=== PATIENT | male | born 1935 | race Caucasian/White ===

== ENCOUNTER 2017-08-12 15:41 | Emergency (ER) | payer MEDICARE ==
[2017-08-12 16:30] LABS: #Basophils 0.1 thou/uL (0.0-0.2); #Eosinphils 0.2 thou/uL (0.0-0.7); #Lymphocytes 1.9 thou/uL (1.20-3.40); #Monocytes 0.7 thou/uL (0.11-0.59); #Neutrophils 5.2 thou/uL (1.40-6.50); %Eosinophils 1.9 % (0.0-10.0); %Lymphocytes 23.2 % (21.0-51.0); %Monocytes 9.2 % (0.0-10.0); %Neutrophils 64.8 % (42.0-75.0); Hemoglobin 16.3 g/dL (14.0-18.0); Mean Corpuscular HGB CONC 31.5 g/dL (32.0-36.0); Mean Corpuscular Hemoglobin 30.3 pg (27.0-31.0); Mean Corpuscular Volume 96.1 fl (80.0-94.0); Mean Platelet Volume 6.8 fL (7.4-10.4); Platelet Count 219 thou/uL (130-400); Red Blood Cell (RBC) Count 5.38 mill/uL (4.70-6.10)
--- NOTE | 2017-08-12 16:36 | RAD ---
PORTABLE AP CHEST X-RAY 08/12/17 HISTORY: Chest pain. COMPARISON: 05/30/16. 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 The cardiac silhouette is magnified by projection bu t stable in size. Pulmonary vasculature is within normal limits. The findings are clear. There is mi ld elevation of the left hemidiaphragm. Median sternotomy wires are seen. Vascular calcifications se en in the thoracic aorta. There is osteopenia. IMPRESSION: Stable chest without evidence of an acute cardiopulmonary process. POS: [facility]
[2017-08-12 16:44] LABS: ALT (SGPT) 22 U/L (8-55); AST (SGOT) 24 U/L (5-34); Albumin 4.1 g/dL (3.4-4.8); Alkaline Phosphatase 78 U/L (40-150); Anion Gap 15 mmol/L (10-20); BUN (Urea Nitrogen) 19 mg/dL (8.4-25.7); Bilirubin, Total 0.7 mg/dL (0.2-1.2); CK (CPK) 167 U/L (30-200); Calc. Creatinine Clearance 0 mL/min (70-130); Calcium 9.6 mg/dL (7.8-10.44); Carbon Dioxide 27 mmol/L (23-31); Chloride 105 mmol/L (98-107); Estimated GFR-MDRD 81; Globulin 2.7 g/dL (2.4-3.5); Glucose 139 mg/dL (83-110); Potassium 3.8 mmol/L (3.5-5.1); Protein, Total 6.8 g/dL (5.8-8.1); Sodium 143 mmol/L (136-145)
[2017-08-12 16:51] LABS: CKMB 5.1 ng/mL (0-6.6); Troponin I 0.017 ng/mL (< 0.028)
== END 2017-08-12 17:32 | disposition short-term general hospital (02) ==
LOC: NAV ERS 15:41
DX: R07.2 Precordial pain (principal); I25.2 Old myocardial infarction; E78.5 Hyperlipidemia, unspecified; I25.810 Atherosclerosis of coronary artery bypass graft(s) without angina pectoris; Z87.891 Personal history of nicotine dependence; Z79.82 Long term (current) use of aspirin
CPT/HCPCS: 36415; 71010; 80053; 82553; 84484; 85025; 93005

== ENCOUNTER 2019-12-27 10:40 | Emergency (ER) | payer MEDICARE, OTHER ==
[2019-12-27] MEDS ORDERED: Sodium Chloride 0.9% 1,000 ML ONE (12:08)
[2019-12-27 12:31] LABS: #Basophils 0.1 thou/uL (0.0-0.2); #Eosinphils 0.1 thou/uL (0.0-0.7); #Lymphocytes 1.5 thou/uL (1.20-3.40); #Monocytes 0.9 thou/uL (0.11-0.59); #Neutrophils 5.3 thou/uL (1.40-6.50); %Eosinophils 1.7 % (0.0-10.0); %Lymphocytes 19.1 % (21.0-51.0); %Monocytes 10.8 % (0.0-10.0); %Neutrophils 67.4 % (42.0-75.0); Hemoglobin 15.5 g/dL (14.0-18.0); Mean Corpuscular HGB CONC 31.6 g/dL (32.0-36.0); Mean Corpuscular Hemoglobin 28.8 pg (27.0-31.0); Mean Corpuscular Volume 91.2 fL (78.0-98.0); Mean Platelet Volume 6.6 fL (7.4-10.4); Platelet Count 283 thou/uL (130-400); RBC Distribution Width 12.5 % (11.5-14.5); Red Blood Cell (RBC) Count 5.39 mill/uL (4.70-6.10); White Blood Cell (WBC) Count 7.9 thou/uL (4.8-10.8)
[2019-12-27 12:43] LABS: ALT (SGPT) 15 U/L (8-55); AST (SGOT) 19 U/L (5-34); Albumin 3.8 g/dL (3.4-4.8); Alkaline Phosphatase 86 U/L (40-110); Anion Gap 16 mmol/L (10-20); BUN (Urea Nitrogen) 14 mg/dL (8.4-25.7); Bilirubin, Total 0.6 mg/dL (0.2-1.2); Calc. Creatinine Clearance 0 mL/min (70-130); Calcium 9.5 mg/dL (7.8-10.44); Carbon Dioxide 27 mmol/L (23-31); Chloride 105 mmol/L (98-107); Estimated GFR-MDRD 80; Globulin 3.6 g/dL (2.4-3.5); Glucose 104 mg/dL (83-110); Potassium 4.8 mmol/L (3.5-5.1); Protein, Total 7.4 g/dL (5.8-8.1); Sodium 143 mmol/L (136-145)
== END 2019-12-27 13:58 | disposition home or self-care (01) ==
LOC: NAV ERS 10:40
DX: R53.1 Weakness (principal); I25.2 Old myocardial infarction; E78.5 Hyperlipidemia, unspecified; E78.00 Pure hypercholesterolemia, unspecified; Z87.891 Personal history of nicotine dependence
CPT/HCPCS: 80053; 85025; 96360; J7050